=== PATIENT | female | born 1980 | race Caucasian/White ===

== ENCOUNTER → 2019-10-29 | Outpatient (CLI) | payer OTHER | LOC: M.RAD 09:22 | PROVIDERS: ATTEND Nurse Practitioner Family | DX: M77.32 Calcaneal spur, left foot (principal); M79.89 Other specified soft tissue disorders ==

== ENCOUNTER → 2020-02-12 | Outpatient (CLI) | payer OTHER ==
[2020-02-12 11:38] LABS: ABSOLUTE BASOPHILS 0.1 thou/uL (0.0-0.2); ABSOLUTE EOSINOPHILS 0.1 thou/uL (0.0-0.7); ABSOLUTE LYMPHOCYTES 1.6 thou/uL (0.8-5.3); ABSOLUTE MONOCYTES 0.5 thou/uL (0.0-1.2); ABSOLUTE NEUTROPHILS 4.2 thou/uL (1.6-8.1); BASOPHILS 0.9 %; EOSINOPHILS 1.3 %; HEMATOCRIT 39.3 % (37.0-47.0); HEMOGLOBIN 13.5 gm/dL (12.0-15.0); LYMPHOCYTES 25.1 %; MCH 30.3 pg (26.0-34.0); MCHC 34.3 g/dL (28.0-37.0); MCV 88.2 fL (80.0-100.0); MONOCYTES 7.9 %; MPV 7.4 fl. (7.2-11.1); NUCLEATED RBCS 0 /100WBC; PLATELET COUNT* 289 thou/uL (150-400); POLYS 64.8 %; RBC 4.46 mil/uL (4.20-5.00); RDW-CV 13.3 % (10.5-14.5); WBC 6.5 thou/uL (4.0-11.0)
[2020-02-12 11:57] LABS: CREATININE 0.6 mg/dL (0.6-1.3); POTASSIUM 3.7 mmol/L (3.5-5.1); TOTAL PROTEIN 7.4 g/dL (6.4-8.2)
[2020-02-12 12:40] LABS: ESR (SEDRATE) 15 mm/hr (0-20)
== END ==
LOC: M.LAB 11:13
PROVIDERS: ATTEND Specialist
DX: Z20.828 Contact with and (suspected) exposure to other viral communicable diseases (principal); M62.81 Muscle weakness (generalized); G62.9 Polyneuropathy, unspecified; R20.2 Paresthesia of skin; Z83.49 Family history of other endocrine, nutritional and metabolic diseases

== ENCOUNTER → 2020-05-20 | Outpatient (CLI) | payer OTHER | LOC: M.MRI 06:52 | PROVIDERS: ATTEND Psychiatry & Neurology Neurology | DX: G83.14 Monoplegia of lower limb affecting left nondominant side (principal) ==

== ENCOUNTER → 2021-02-23 | Outpatient (CLI) | payer OTHER ==
[~2021-02-23] MED LIST: AUGMENTIN 875-1 EACH PO; METOPROLOL TART25 MG PO
== END ==
LOC: M.MRI 02-16 11:30
PROVIDERS: ATTEND Surgery
DX: N63.14 Unspecified lump in the right breast, lower inner quadrant (principal); N63.11 Unspecified lump in the right breast, upper outer quadrant; N63.21 Unspecified lump in the left breast, upper outer quadrant; N63.24 Unspecified lump in the left breast, lower inner quadrant

== ENCOUNTER → 2021-03-03 | Outpatient (CLI) | payer OTHER ==
--- NOTE | 2021-03-08 12:06 | PATH ---
[address] [address] PATHOLOGY RPT PROCEDURE Name: JAGJIT REMY Room: [facility] Mayers#: [id number] Admission: 03/03/21 Date of : 80 Discharge: Report #: [id number] Path Case #: [id number] [facility] Accession Number: [id number] . 01 Material submitted: . breast - BREAST MASS RIGHT 5:00 3CMFN. Modifiers: right . 01 Clinical history: . 0.94 X 1.2 X 1.1 CM . 02 Diagnosis: Right breast mass, 5:00, 3 cm from nipple, image-guided core biopsies: - Fibroepithelial lesion suggesting benign phyllodes tumor. See comment. . (EDY:donovan; 03/04/2021) QLM 03/04/2021 1237 Local . 02 Comment: Although the tissues present are compatible with a benign phyllodes tumor, excision of lesion is recommended in order to exclude a more worrisome lesion. . Reviewed with Dr. Zaki Johnson on 03/04/2021, who agrees with the diagnosis. . (EDY:donovan; 03/04/2021) . 02 Electronically signed: . Gagan Diaz MD, Pathologist NPI- [id number] . 01 Gross description: . The specimen is received in formalin, labeled "Jagjit Yuliya, right breast biopsy". The specimen is additionally labeled on the requisition as, "right breast mass 5:00 3 cm from nipple". Received are multiple needle cores of fibrofatty tissue measuring 1.0 x 0.8 x 0.2 cm in aggregate dimensions. The specimen is submitted entirely in cassettes A1 through A3. The cold ischemic time is less than 1 minute. The total formalin fixation time is 10 hours and 16 minutes. (CAA; 03/03/2021) QAC/QAC 03/03/2021 1637 Local . 02 Pathologist provided ICD-10: N63.0 . 02 CPT . 382093 Specimen Comment: A courtesy copy of this report has been sent to [phone] [place] [address] PATHOLOGY RPT PROCEDURE Name: JAGJIT REMY Room: [facility] MIKE Mayers#: [id number] Admission: 03/03/21 Date of : 80 Discharge: Report #: [id number] Path Case #: [id number] Specimen Comment: Report sent to Specimen Comment: A duplicate report has been generated due to demographic updates. Performed at: [address], [place], [place] [id number] MD Yoan Hughes MD Phone: [phone] Performed at: 02 [facility] [address], [place], [place] [id number] MD Gagan Diaz MD Phone: [phone]
== END | disposition home or self-care (01) ==
LOC: M.ULTRA
PROVIDERS: ATTEND Surgery
DX: N60.21 Fibroadenosis of right breast (principal); R92.1 Mammographic calcification found on diagnostic imaging of breast; Z79.899 Other long term (current) drug therapy

== ENCOUNTER → 2021-03-22 | Outpatient (CLI) | payer OTHER ==
[~2021-03-22] MED LIST changes: +MULTI VITAMIN1 EACH PO; +NEURONTIN300 MG PO; +ROXICODONE5 M2 PO; +VITAMIN B-121000 MC2 SUBLING; +VITAMIN D3125 MC2 PO
== END | disposition home or self-care (01) ==
LOC: M.ULTRA 13:02
PROVIDERS: ATTEND Surgery
DX: N63.10 Unspecified lump in the right breast, unspecified quadrant (principal); N63.20 Unspecified lump in the left breast, unspecified quadrant; Z79.899 Other long term (current) drug therapy; Z20.822 Contact with and (suspected) exposure to COVID-19

== ENCOUNTER → 2021-03-29 | Day surgery (SDC) | payer OTHER ==
[2021-03-29 06:33] LABS: HEMATOCRIT 39.2 % (37.0-47.0); HEMOGLOBIN 13.1 gm/dL (12.0-15.0); MCH 29.5 pg (26.0-34.0); MCHC 33.4 g/dL (28.0-37.0); MCV 88.2 fL (80.0-100.0); MPV 7.7 fl. (7.2-11.1); RBC 4.45 mil/uL (4.20-5.00); RDW-CV 13.5 % (10.5-14.5); WBC 6.8 thou/uL (4.0-11.0)
--- NOTE | 2021-03-29 11:18 | EKG ---
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[facility] [place] : 1980 Requested By: Dilcia Cheung Order Number: [id number] Reading MD: Natan Pratt Measurements Intervals [place] Rate: 49 P: 22 NV: 135 QRS: 27 QRSD: 114 T: 36 QT: 427 QTc: 386 Interpretive Statements Sinus bradycardia Borderline intraventricular conduction delay No previous ECG available for comparison Electronically Signed On 03-29-2021 11:18:27 LAND SURVEYOR ASSISTANT by Natan Pratt [email or web address] <ELECTRONICALLY SIGNED> By: Natan Pratt MD, [facility] 03/29/21 1118 4 0655 Natan Pratt MD, FACC /EPI
--- NOTE | 2021-04-08 13:47 | PATH ---
[address] [address] PATHOLOGY RPT PROCEDURE Name: JULIETTE REMY Room: [facility].#: [id number] Admission: 03/29/21 Date of : 80 Discharge: Report #: [id number] Path Case #: [id number] [facility] Accession Number: [id number] . 01 Material submitted: . PART A: breast - LEFT BREAST PAPILLOMA LS LATERAL, ST SUPERIOR, DS DEEP. Modifiers: left PART B: breast - RIGHT BREAST FIBROPITHELIAL LESION LONG LAT, SHORT SUPERIOR, DBL-DEEP. Modifiers: right PART C: breast - RIGHT BREAST SUBAREOLAR LESION LONG LAT, SHT SUPERIOR, AND DBL-DEEP. Modifiers: right . 01 Clinical history: . INTRADUCTAL PAPILOMA LEFT BREAST RIGHT BREAST MASS . 02 Diagnosis: A. Left breast papilloma: - "Lesion #1" ductal papilloma adjacent to prior biopsy site, apocrine changes, negative for atypia. - "Lesion #2" fibroadenoma and benign breast tissue with usual duct epithelial hyperplasia and apocrine change, negative for atypia. - Biopsy clip in container. - See comment. . B. 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 - Focal microcalcification. - Fibrocystic changes including fibrosis, adenosis, duct ectasia, cyst formation. - Negative for atypia and malignancy. - "Clear plastic encased ovoid hardware" in specimen container. See comment. . C. Right breast subareolar lesion: - Tubular adenoma with prominent calcifications in association with changes of prior biopsy (including squamous metaplasia), usual duct epithelial hyperplasia and apocrine change, negative for atypia. See comment. . (EDY:oliva/josseline; 04/06/2021) QTP 04/07/20212041 Local . 02 Comment: A, B and C reviewed with Dr. Gagan Diaz on 04/07/2021 who agrees with the diagnoses. . Preliminary findings discussed with Nadine Mota ([facility] breast navigator) [place] [address] PATHOLOGY RPT PROCEDURE Name: JULIETTE REMY Room: [facility] RUDDY Mayers#: [id number] Admission: 03/29/21 Date of : 80 Discharge: Report #: [id number] Path Case #: [id number] by Dr. Almaraz on 04/01/2021, and with Dr. Dilcia Cheung by Dr. Almaraz on 04/06/2021. . (EDY:oliva/josseline; 04/07/2021) . 02 Electronically signed: . Mi Almaraz MD, Pathologist NPI- [id number] . 01 Gross description: . A. Fixative: Formalin Labeled: Left breast papilloma Specimen received: Intact, however the specimen has been previously markedly compressed and as a result the surgical margins may be distorted Oriented: Long = lateral, short = superior, double = deep Weight: 9 g Dimensions: 5.0 cm superior to inferior, 3.0 cm medial to lateral, 1.2 cm superficial to deep . The specimen is inked as follows: superior-red inferior-blue superficial-green deep-black lateral-orange medial-yellow . Sectioned from: Superior to inferior Number of slices: 17 Lesion #1: 0.9 cm superior to inferior 0.8 cm medial to lateral 0.5 cm superficial to deep Lesion #1 located in slices 11-15 . Lesion #1 distance to margins: 2.2 cm to superior 0.2 cm to inferior, slice 16 0.3 cm to superficial, slice 13 and slice 14 Abuts and is suspicious for involving the deep margin, slices 12-15 0.8 cm to lateral, slices 13-14 0.7 cm to medial, slices 13-14 . Biopsy clip: Received free floating in the same container is a clear plastic ovoid hardware with mechanical parts. . Lesion #2: located 0.9 cm superior from lesion #1 is a second lesion (lesion #2, 1.1 cm superior to inferior, 0.6 cm medial to lateral, 0.5 cm superficial to deep) Lesion #2 located in slices 2-6 [place] [address] PATHOLOGY RPT PROCEDURE Name: JULIETTE REMY Room: [facility]#: [id number] Admission: 03/29/21 Date of : 80 Discharge: Report #: [id number] Path Case #: [id number] Lesion #2 distance to margins: 0.2 cm to superior 1.7 cm to inferior 0.2 cm to superficial, slice 4 and slice 5 Involves the deep margin Suspicious for involving the lateral margin 1.1 cm to medial, slices 5-6 . Uninvolved breast parenchyma: Fatty and unremarkable with less than 5% fibrous tissue . The specimen is submitted as follows: A1: Slice 1, represented A2: Slice 2-slice 3, entirely submitted A3: Slice 4-slice 5, entirely submitted A4: Slice 6-slice 7, entirely submitted A5: Slice 9 to show section between lesion #1 and lesion #2, entirely submitted A6: Slice 11, entirely submitted A7: Slice 12, entirely submitted A8: Slice 13, entirely submitted A9: Slice 14, entirely submitted A10: Slice 15, entirely submitted A11: Slices 16-17, represented . Cold ischemic time: 13 minutes Total time in formalin: 34 hours . B. Fixative: Formalin Labeled: Right fibroepithelial lesion breast Specimen received: Intact, however the specimen has been previously markedly compressed and as a result the surgical margins may be distorted Oriented: Long stitch = lateral, short stitch = superior, double stitch = deep Weight: 4 g Dimensions: 2.7 cm superior to inferior, 2.5 cm medial to lateral, 0.9 cm superficial to deep . The specimen is inked as follows: superior-red inferior-blue superficial-green deep-black lateral-orange medial-yellow . Sectioned from: Superior to inferior Number of slices: 10 Lesion: 1.3 cm superior to inferior, 0.6 cm superficial to deep, 1.0 [place] [address] PATHOLOGY RPT PROCEDURE Name: JULIETTE REMY Room: [facility]#: [id number] Admission: 03/29/21 Date of : 80 Discharge: Report #: [id number] Path Case #: [id number] medial to lateral Lesion located in slices 3-10 . Lesion distance to margins: 0.4 cm to superior Abuts and is suspicious for involving the inferior margin Involves the superficial margin, slices 6-8 0.3 cm to deep, slices 3, 4 and 5 0.5 cm to lateral, slice 8 0.6 cm to medial, slice 8 . Biopsy clip: A silver metallic ribbon-shaped biopsy clip is identified in slice 5. Also received in the same container is a clear plastic encased ovoid hardware that contains mechanical parts. Uninvolved breast parenchyma: Fatty and unremarkable with less than 5% fibrous tissue . The specimen is submitted as follows: B1: Slice 1, represented B2: Slice 3-slice 4, entirely submitted B3: Slice 5-slice 6, entirely submitted B4: Slice 7-slice 8, entirely submitted B5: Slice 9, entirely submitted B6: Slice 10, entirely submitted . Cold ischemic time: 10 minutes Total time in formalin: 34 hours . C. Fixative: Formalin Labeled: Right breast subareolar lesion Specimen received: Intact, however the specimen has been previously markedly compressed and as a result the surgical margins may be distorted Oriented: Long stitch = lateral, short stitch = superior, double stitch = deep Weight: 3 g Dimensions: 3.5 cm superficial to deep, 2.4 cm medial to lateral, 0.7 cm superior to inferior . The specimen is inked as follows: superior-red inferior-black superficial-green deep-blue lateral-orange medial-yellow . Sectioned from: Superior to inferior (black) Number of slices: 13 (inferior margin = black, deep margin = blue) Lesion: [place] [address] PATHOLOGY RPT PROCEDURE Name: JULIETTE REMY Room: [facility]#: [id number] Admission: 03/29/21 Date of : 80 Discharge: Report #: [id number] Path Case #: [id number] Biopsy clip: Not identified within the specimen. Also received in the same container is a clear plastic encased ovoid hardware that contains mechanical parts. Uninvolved breast parenchyma: Fatty and unremarkable with approximately 10% fibrous tissue . The specimen is submitted sequentially, entirely as follows: C1, slice 1, entirely submitted C2: Slices 2-3, entirely submitted C3: Slices 4-6, entirely committed C4: Slices 7-9, entirely submitted C5: Slices 10-11, entirely submitted C6: Slice 12, inferior margin (black), entirely submitted . Cold ischemic time: 10 minutes Total time in formalin: 34 hours . Also received stuck to the bag holding all three specimens (A-C) is an additional collection time and time placed in formalin sticker with a collection time of 0820 and placed in formalin time of 901. The sticker is dated 03/29 and initialed "AB". This collection time and time placed in formalin do not match any of the previous stickers that are placed directly on the specimen containers for A-C. ([place]; 03/30/2021) DKA/DKA 04/07/2021 1545 Local . 02 Microscopic: . Immunohistochemical stain results (properly controlled) Block A2: CK5/6: - Large duct intraductal epithelial cells - mosaic positive - Intraductal apocrine cells - negative ER: - Large duct intraductal epithelial cells - scattered nuclear positive - Large duct apocrine cells - negative . Block A3 CK5/6: - Large duct intraductal epithelial cells - mosaic positive ER: - Large duct intraductal epithelial cells - focally positive Myosin: - Large duct peripheral myoepithelial cells positive, scattered rare intraductal myoepithelial cells positive . Block A8 CK5/6: - Intraductal epithelial cells - mosaic positive; myoepithelial cells positive ER: - Intraductal epithelial cells - focally positive (nuclear) Myosin: - Peripheral intraductal myoepithelial cells positive . Block C1 CK5/6: - Intraductal epithelial cells - mosaic positive; [place] [address] PATHOLOGY RPT PROCEDURE Name: JULIETTE REMY [facility] [id number] Admission: 03/29/21 Date of : 80 Discharge: Report #: [id number] Path Case #: [id number] ER: - Intraductal epithelial cells - negative Myosin: - Peripheral ductal myoepithelial cells - positive; rare intraductal myoepithelial cells positive . Block C4 CK5/6 - Intraductal epithelial cells - mosaic postive ER: - Intraductal epithelial cells - negative Myosin - Intraductal myoepithelial cells and peripheral myoepithelial cells - positive . (MLK:oliva/josseline; 04/06/2021) . 02 Pathologist provided ICD-10: D24.2, N62, D24.1, N60.11, N60.21, N60.41 . 02 CPT . 117512, 618178, 136643, K20464, N09370 Specimen Comment: A courtesy copy of this report has been sent to [phone] Specimen Comment: Report sent to Specimen Comment: A duplicate report has been generated due to demographic updates. Performed at: 01 [facility] [address] [id number] MD Yoan Hughes MD Phone: [phone] Performed at: 02 [place] [id number] [address] [id number] MD Zaki Johnson MD Phone: [phone]
--- NOTE | 2021-04-16 15:15 | OP ---
[address] [address] OPERATIVE REPORT Name: JULIETTE REMY Room: [facility]#: [id number] Admission: 03/29/21 Attend Phys: Dilcia Cheung MD Discharge: Date of : 80 Report #: [id number] THIS REPORT FOR: cc: Shilpa Gonzalez. Shilpa Greene. Dilcia Lezama MD ~ DATE OF SURGERY: 03/29/2021 PREOPERATIVE DIAGNOSES: 1. Left breast intraductal papilloma. 2. Right breast fibroepithelial lesion. 3. Right breast subareolar lesion apparently not amenable to biopsy, probable papilloma. POSTOPERATIVE DIAGNOSES: 1. Left breast intraductal papilloma. 2. Right breast fibroepithelial lesion. 3. Right breast subareolar lesion apparently not amenable to biopsy, probable papilloma. PROCEDURES: 1. Left breast seed localized excision of a papilloma. 2. Right breast seed localized excision of fibroepithelial lesion. 3. Right breast seed localized excision of subareolar mass. SURGEON: Dilcia Cheung MD PREMIUM REPRESENTATIVE: None. ANESTHESIA: General anesthesia. ESTIMATED BLOOD LOSS: 3 mL. DRAINS: None. SPECIMENS REMOVED: 1. Left breast papilloma. 2. Right breast fibroepithelial lesion. 3. Right breast subareolar mass. COMPLICATIONS: None. FINDINGS: Localizer seeds and biopsy clips visible in both the papilloma and fibroepithelial lesion. The seed noted in the subareolar mass on specimen imaging. Other incision, left breast, 5 cm in length, 13 cm from nipple, 5 o'clock position inframammary fold incision right breast, 5 cm in length, [address] [address] OPERATIVE REPORT Name: JULIETTE REMY Room: [facility]#: [id number] Admission: 03/29/21 Attend Phys: Dilcia Cheung MD Discharge: Date of : 80 Report #: [id number] from nipple 6 o'clock position periareolar. INDICATIONS: The patient is a 40-year-old female who is followed for high risk. She had an MRI. Most recent imaging was in 07/2020 at [place], which was bilateral ultrasound, which showed stable changes bilaterally, but a new 0.4 mm angulated mass at the 5 o'clock left breast, 8 cm from the nipple. She had a biopsy of that on 08/03/2020, at [place] and Pap for the 5 o'clock area was intraductal papilloma without atypia. She had to delay excision of her papilloma due to other ongoing issues. She had an MRI , at [place], which showed a 6 mm mass in the subareolar right breast, which was a probable papilloma and a new 1.1 cm mass at the 4-5 o'clock right breast mid depth. She had ultrasound and biopsy of those on 03/03/2021, at [place], which confirmed the 5 o'clock area 3 cm from the nipple, lobulated mass and Pap with fibroepithelial lesion, favor benign phyllodes. They did not biopsy the papilloma, but recommended excision. Risks and benefits for seed localized excision of these three sites were discussed with the patient, delineated in H and P and she agreed to proceed. DESCRIPTION OF PROCEDURE: The patient was brought to the operating room after informed consent had been obtained. She was taken to the ultrasound, proceed localization of these 3 masses the prior week. Bilateral breasts and axilla were prepped and draped in normal sterile manner. Prior to all skin incisions, a combination of 1% lidocaine with epinephrine and 0.25% Marcaine plain was used. The skin incisions were marked out after the localizer probe was used to christine the areas of activity as noted by the probe and the shortest distances were obtained. Attention was first turned to the left breast. An inframammary skin incision was made with a knife. This was deepened into the subcutaneous tissues using the Bovie electrocautery. A path was created in the mid parenchymal breast plane toward the activity as noted by the localizer seed. There is no obvious palpable mass in this area. There was some general dense tissue. I removed a lump of tissue that seemed to be surrounding the activity as noted by the localizer seed, although the localizer seed did extrude once the specimen was removed. This was labeled for orientation purposes. Imaging showed the biopsy clip was within the specimen. Therefore, this was felt to be appropriate specimen. This wound bed was copiously irrigated. A Ligaclip was placed to christine the lumpectomy bed and as I was waiting for the specimen image, I did turn my attention to the right side. With cleaned sterile gloves for the right side, I marked out my periareolar skin incision on that side after using the localizer to localize the two seed locations. The skin incision was made with a knife and deepened into subcutaneous tissues using the Bovie electrocautery. Attention was first turned to the 5 o'clock area and Bovie electrocautery was used to dissect deeper in the tissue until the area of noted by the probe was closer. I again could not easily feel a mass in this area. Therefore, I relied on the localizer probe to guide me to the right direction. I did excise the lump of tissue around the activity the localizer probe. Again, [place] [address] OPERATIVE REPORT Name: MAKENZIENICKJULIETTE Zonia Room: [facility].#: [id number] Admission: 03/29/21 Attend Phys: Dilcia Cheung MD Discharge: Date of : 80 Report #: [id number] out as the specimen was being removed. Once completely removed, it was labeled for orientation purposes and sent for specimen imaging, which showed that the biopsy clip again was within the specimen. This biopsy site was then marked with a Ligaclip and attention was then turned to the subareolar lesion. Through the same incision, I tunneled toward the subareolar region with the Bovie electrocautery. The localizer probe was used to direct dissection. Once I reached the general area of activity as noted by the localizer probe, I dissected circumferentially surrounding this. Once completely removed, it was labeled for orientation purposes, placed in the imaging device, which confirmed the localizer seed was with the specimen. A Ligaclip was placed in the lumpectomy bed as well. This right side was copiously irrigated with normal saline. It was noted to be adequately hemostatic. The deeper tissues were reapproximated with interrupted 3-0 Vicryl sutures. The deep dermal layers were closed with interrupted 3-0 Vicryl sutures and the skin was closed with 4-0 Monocryl in a subcuticular manner. Attention was then turned to the left side. The deeper tissues were closed with interrupted 3-0 Vicryl sutures. The deep dermal layers were then closed with a 3-0 Vicryl and skin was closed with 4-0 Monocryl in a subcuticular manner. Both wounds were dressed with Dermabond dressing. The patient tolerated the procedure well. Sponge, lap and needle counts were correct x2 at the end of the procedure. She was transferred to recovery in stable condition. <ELECTRONICALLY SIGNED> By: Dilcia Cheung MD 04/16/21 1515 0851 [id number] Cheung MD /nt
== END | disposition home or self-care (01) ==
LOC: M.SUR 05:36
PROVIDERS: ATTEND Surgery
DX: D24.2 Benign neoplasm of left breast (principal); N60.11 Diffuse cystic mastopathy of right breast; D24.1 Benign neoplasm of right breast; N60.21 Fibroadenosis of right breast; N60.41 Mammary duct ectasia of right breast; N62 Hypertrophy of breast; R92.1 Mammographic calcification found on diagnostic imaging of breast; Z98.890 Other specified postprocedural states; Z79.899 Other long term (current) drug therapy; Z20.822 Contact with and (suspected) exposure to COVID-19